=== PATIENT | female | born 2000 ===

== ENCOUNTER 2024-05-01 23:39 | Emergency (ER) | payer SELFPAY ==
[~2024-05-01] VITALS: Ht 165.1 cm; Wt 95.3 kg
[2024-05-02 02:40] LABS: BASO # 0.1 10*3/uL (0.0-0.1); BASO % 0.8 % (0.0-1.0); EOS # 0.1 10*3/uL (0.0-0.4); EOS % 1.1 % (1.0-4.0); HEMATOCRIT 39.8 % (37.0-47.0); LYMPH # 3.8 10*3/uL (1.3-4.4); LYMPH % 38.5 % (27.0-41.0); MEAN CELL VOLUME 85.4 fl (81.0-99.0); MEAN CORPUSCULAR HGB 27.5 pg (27.0-31.0); MEAN CORPUSCULAR HGB CONC 32.2 g/dl (33.0-37.0); MEAN PLATELET VOLUME 9.8 fl (9.6-12.3); MONO % 10.3 % (3.0-9.0); NEUT # 4.9 10*3/uL (2.3-7.9); NEUT % 49.1 % (47.0-73.0); PLATELET COUNT AUTOMATED 394 10*3/uL (130-400); RED BLOOD COUNT 4.66 10*6/uL (4.10-5.10); RED CELL DISTRI WIDTH 13.9 % (0-14.5); WHITE BLOOD COUNT 9.9 10*3/uL (4.8-10.8)
[2024-05-02 03:05] LABS: ALKALINE PHOSPHATASE 63 U/L (46-116); BUN 13 mg/dl (9-23); CHLORIDE 107 mmol/L (98-107); POTASSIUM 3.9 mmol/L (3.4-5.1); SGPT/ALT 22 U/L (5-49)
== END 2024-05-02 06:03 | disposition home or self-care (01) ==
LOC: ED 23:39
PROVIDERS: Emergency Medicine
DX: R07.89 Other chest pain (principal)

== ENCOUNTER 2025-06-24 06:21 | Emergency (ER) | payer SELFPAY ==
[~2025-06-24] VITALS: Ht 165.1 cm; Wt 95.3 kg
[2025-06-24] MEDS ORDERED: FLUOXETINE HYDR20 M1 PO (06:32)
[2025-06-24] MEDS ORDERED: PROPRANOLOL HCL20 MG PO (06:32)
[2025-06-24] MEDS ORDERED: METHOCARBAMOL750 M1 PO (06:32)
[2025-06-24] MEDS ORDERED: QUETIAPINE FUMA50 M1 PO (06:33)
[2025-06-24 06:50] LABS: BASO # 0.1 10*3/uL (0.0-0.1); BASO % 0.7 % (0.0-1.0); EOS # 0.0 10*3/uL (0.0-0.4); EOS % 0.1 % (1.0-4.0); MEAN CELL VOLUME 87.4 fl (81.0-99.0); MEAN CORPUSCULAR HGB 28.8 pg (27.0-31.0); MEAN PLATELET VOLUME 9.9 fl (9.6-12.3); MONO # 0.8 10*3/uL (0.1-1.0); MONO % 5.8 % (3.0-9.0); NEUT # 10.4 10*3/uL (2.3-7.9); NEUT % 77.0 % (47.0-73.0); NUCLEATED RED BLOOD CELL 0.0 % (0.0-0.0); NUCLEATED RED BLOOD CELL 0.0 10*3/uL (0.0-0.0); PLATELET COUNT AUTOMATED 395 10*3/uL (130-400); RED CELL DISTRI WIDTH 13.3 % (0-14.5)
[2025-06-24 07:16] LABS: BUN 12 mg/dl (9-23); SGPT/ALT 35 U/L (5-49)
[2025-06-24] MEDS ORDERED: MG-AL HYDROXIDE/SIMETICONE 30 ML UDC PO ONE (07:55)
[2025-06-24 07:57] LABS: BILIRUBIN Negative (Negative); BLOOD Negative (Negative); CLARITY Turbid (Clear); COLOR Yellow (Yellow); KETONE Negative (Negative); LEUKO ESTERASE Trace (Negative); NITRITE Negative (Negative); PH 7.0 (4.5-8.0); SPECIFIC GRAVITY 1.025 (1.001-1.030); UROBILINOGEN 0.2 E.U./dl (0.0-1.0)
[2025-06-24 08:10] LABS: BACTERIA 3+; EPITHELIAL CELLS 21-30
[2025-06-24] MEDS ORDERED: Dicyclomine Hydrochloride 20 MG/2 ML VIAL IM ONE (08:40)
[2025-06-24] MEDS ORDERED: DICYCLOMINE HYD10 MG PO (09:48)
[2025-06-24] MEDS ORDERED: Ondansetron4 MG PO (09:49)
== END 2025-06-24 10:01 | disposition home or self-care (01) ==
LOC: ED 06:21
PROVIDERS: Internal Medicine
DX: R10.11 Right upper quadrant pain (principal); R11.2 Nausea with vomiting, unspecified